=== PATIENT | male | born 1970 | race Caucasian/White ===

== ENCOUNTER 2017-09-29 23:45 | Emergency (ER) | payer SELFPAY ==
[~2017-09-29] VITALS: Ht 182.9 cm; Wt 93.0 kg
[~2017-09-29 23:45] MED LIST: SULF1TAB12 PO; SYN.05 PO
[2017-09-30 00:04] VITALS: BP 125/79
--- NOTE | 2017-09-30 00:31 | NUR ---
PT C/O PAIN THAT STARTS IN HIPS AND RADIATES DOWN LEGS TO KNEES. PT STATES LAST WEEK THAT PAIN WAS RADIATING DOWN RT LEG TO KNEE BUT STATES THAT STARTING "ABOUT" YESTERDAY PAIN IS RADIATING DOWN LEFT LEG. PT STATES HE HAS NO PAIN WHEN LAYING DOWN BUT 8/10 PAIN WHEN WALKING OR GETTING UP. PT DENIES TRAUMA TO AREA, SKIN IS INTACT, +CMS. PT IS LAYING BED AT THIS TIME, AA&0X4. PMH HYPOTHRYROID (PT STATES HE RAN OUT OF RX 2 WEEKS AGO), ASTHMA NKA PT DENIES TAKING MEDS OTHER THAN IBUPROFEN LAST WEEK.
[2017-09-30] MEDS ORDERED: METHOCARBAMOL 500 MG TAB PO ONE (01:20)
[2017-09-30] MEDS ORDERED: KETOROLAC 60 MG/2 ML VIAL IM ONE (01:20)
[2017-09-30 03:01] VITALS: BP 122/76
--- NOTE | 2017-09-30 03:01 | NUR ---
Patient discharged with v/s stable. Written and verbal after care instructions given and explained. Patient alert, oriented and verbalized understanding of instructions. Ambulatory with to car. All questions addressed prior to discharge. ID band removed. Patient advised to follow up with PMD. Rx of LEVOTHROID 112MCG, LIDODERMAL PATCH, MOTRIN 600MG, given. Patient educated on indication of medication including possible reaction and side effects. Opportunity to ask questions provided and answered.
== END 2017-09-30 03:01 | disposition home or self-care (01) ==
LOC: MED 23:45
DX: M54.5 Low back pain (principal); E03.9 Hypothyroidism, unspecified; J45.909 Unspecified asthma, uncomplicated; Z79.899 Other long term (current) drug therapy
CPT/HCPCS: 81002; 96372; 99283; J1885

== ENCOUNTER 2018-07-07 00:53 | Emergency (ER) | payer MEDICAID ==
[~2018-07-07] VITALS: Ht 182.9 cm; Wt 99.8 kg
[2018-07-07 00:59] VITALS: BP 125/90
== END 2018-07-07 03:40 | disposition left against medical advice (07) ==
LOC: MED 00:53
DX: Z76.0 Encounter for issue of repeat prescription (principal); Z53.21 Procedure and treatment not carried out due to patient leaving prior to being seen by health care provider

== ENCOUNTER 2018-07-29 22:42 | Emergency (ER) | payer MEDICAID ==
[~2018-07-29] VITALS: Ht 182.9 cm; Wt 95.3 kg
[2018-07-29 22:46] VITALS: BP 135/94
--- NOTE | 2018-07-29 22:49 | NUR ---
PT AMBULATED TO BED 10 WITH VSS.
--- NOTE | 2018-07-29 23:05 | NUR ---
47/M FOR MED REFILL FOR LEVOTHYROXINE. PT STATES HE HAS BEEN OUT FOR 4 MONTHS. PT REPORTS CONSTANT FATIGUE. VSS, AOX4, GCS 15. PT PLACED ON BEDSIDE MONITOR. PMH: ASTHMA, HYPOTHYROIDISM
[2018-07-29 23:40] LABS: BASOPHILS # (AUTO) 0.1 K/uL (0.00-0.22); BASOPHILS % (AUTO) 1.1 % (0.0-2.0); EOSINOPHILS # (AUTO) 0.2 K/uL (0-0.4); HEMATOCRIT 45.5 % (36-52); LYMPHOCYTES # (AUTO) 2.3 K/uL (2.0-11.5); LYMPHOCYTES % (AUTO) 28.1 % (20.5-51.1); MEAN CORPUSCULAR HEMOGLOBIN 31 pg (27-31); MEAN CORPUSCULAR HGB CONC 33 g/dL (33-37); MEAN CORPUSCULAR VOLUME 93.2 fL (80-94); MONOCYTES # (AUTO) 0.4 K/uL (0.8-1.0); MONOCYTES % (AUTO) 5.5 % (1.7-9.3); NEUTROPHILS # (AUTO) 5.1 K/uL (1.8-7.7); NEUTROPHILS % (AUTO) 63.3 % (42.2-75.2); PLATELET COUNT (AUTO) 250 K/uL (140-450); RED BLOOD CELL COUNT(AUTO) 4.88 MIL/uL (4.20-6.10); RED CELL DISTRIBUTION WIDTH 15.7 % (11.6-13.7)
[2018-07-29 23:52] LABS: ANION GAP 10.9 (8-16); CREATININE 1.5 mg/dL (0.7-1.3); POTASSIUM 3.9 mmol/L (3.5-5.1)
[2018-07-30 00:10] LABS: ALBUMIN 4.3 g/dL (3.4-5.0); FREE T4 (FREE THYROXINE) 0.31 ng/dL (0.76-1.46); THYROID STIMULATING HORMONE 127.16 uIU/mL (0.34-3.74); TOTAL BILIRUBIN 0.4 mg/dL (0.0-1.0)
[2018-07-30] MEDS ORDERED: NACL 0.9% 1,000 ML IV ONE (00:20)
[2018-07-30 00:38] LABS: APPEARANCE,URINE CLEAR (CLEAR); BILIRUBIN,URINE NEGATIVE (NEGATIVE); BLOOD, URINE NEGATIVE (NEGATIVE); COLOR,URINE YELLOW (YELLOW); LEUKOCYTE ESTERASE ,URINE NEGATIVE (NEGATIVE); NITRITE, URINE NEGATIVE (NEGATIVE); UGLUCOSE NEGATIVE (NEGATIVE)
[2018-07-30 00:45] LABS: BARBITURATE, URINE NEG. ng/ml (NEG <=200); BENZODIAZEPINE, URINE NEG. ng/mL (NEG <=200); CANNABINOID, URINE NEG. ng/mL (NEG <=50); COCAINE, URINE NEG. ng/mL (NEG <=300); OPIATE, URINE NEG. ng/mL (NEG <=2000); PHENCYCLIDINE SCREEN,URINE NEG. ng/mL (NEG <=25)
[2018-07-30 00:50] LABS: RBC,URINE NONE SEEN /HPF (0-5); WBC,URINE 0-5 (RARE) /HPF (0-5)
[2018-07-30 00:51] LABS: CALCIUM OXALATE CRYSTALS,UR 0-10 /HPF (None Seen)
--- NOTE | 2018-07-30 01:07 | NUR ---
Patient discharged with v/s stable. Written and verbal after care instructions given and explained. Patient alert, oriented and verbalized understanding of instructions. Ambulatory with steady gait. All questions addressed prior to discharge. ID band removed. Patient advised to follow up with PMD. Rx of LEVOTHYROXINE given. Patient educated on indication of medication including possible reaction and side effects. Opportunity to ask questions provided and answered. IV removed, catheter intact and site benign. Applied folded 4x4 gauze and tape to stop bleeding.
[2018-07-30 01:10] VITALS: BP 134/73
[2018-07-30] MEDS ORDERED: LEVOTHYROXINE 0.112 MG TAB PO SCH (06:30)
== END 2018-07-30 01:07 | disposition home or self-care (01) ==
LOC: MED 22:42
DX: E03.9 Hypothyroidism, unspecified (principal); N17.9 Acute kidney failure, unspecified; R03.0 Elevated blood-pressure reading, without diagnosis of hypertension; M79.604 Pain in right leg; M79.605 Pain in left leg; J45.909 Unspecified asthma, uncomplicated; F17.200 Nicotine dependence, unspecified, uncomplicated; Z79.899 Other long term (current) drug therapy
CPT/HCPCS: 36415; 80053; 80305; 81001; 81002; 84439; 84443; 85025; 99283

== ENCOUNTER 2018-08-06 23:02 | Emergency (ER) | payer MEDICAID ==
[~2018-08-06] VITALS: Ht 182.9 cm; Wt 90.7 kg
[2018-08-06 23:13] VITALS: BP 148/104
--- NOTE | 2018-08-06 23:13 | NUR ---
Came in per self. Very non-specific complaints. Skin w/d. Color slightly ashen. Resp even and unlabored. Denies SOB and CP, but states, "I feel like if I move the wrong way, it will hurt." Notified Dr Souza who saw pt immediately.
--- NOTE | 2018-08-06 23:18 | NUR ---
EKG PERFORMED AT BEDSIDE. PT COVERED IN GOWN DURING PROCEDURE
--- NOTE | 2018-08-06 23:20 | NUR ---
PATIENT PRESENTS TO ED WITH NON-SPECIFIC COMPLAINTS. PT STATES FEELING TINGLING IN L ARM AND FEELING "WRONG SINCE YESTERDAY". CAP REFIL IS DELAYED. DENIES N/V/D; SKIN IS DRY/ASHY; AAOX4 WITH EVEN AND STEADY GAIT; LUNGS CLEAR BL; HR EVEN AND REGULAR; PT DENIES ANY FEVER, SOB, OR COUGH AT THIS TIME; PATIENT STATES PAIN OF 0/10 AT THIS TIME; VSS; PATIENT POSITIONED FOR COMFORT; HOB ELEVATED; BEDRAILS UP X2; BED DOWN. ER MD MADE AWARE OF PT STATUS.
--- NOTE | 2018-08-06 23:25 | NUR ---
X-Ray at bedside.
[2018-08-06 23:59] LABS: BASOPHILS # (AUTO) 0.1 K/uL (0.00-0.22); BASOPHILS % (AUTO) 1.4 % (0.0-2.0); EOSINOPHILS # (AUTO) 0.2 K/uL (0-0.4); EOSINOPHILS % (AUTO) 2.3 % (0.0-4.0); HEMATOCRIT 40.3 % (36-52); HEMOGLOBIN 13.7 g/dL (12.0-18.0); LYMPHOCYTES # (AUTO) 1.8 K/uL (2.0-11.5); LYMPHOCYTES % (AUTO) 22.1 % (20.5-51.1); MEAN CORPUSCULAR HEMOGLOBIN 32 pg (27-31); MEAN CORPUSCULAR HGB CONC 34 g/dL (33-37); MEAN CORPUSCULAR VOLUME 92.8 fL (80-94); MONOCYTES # (AUTO) 0.5 K/uL (0.8-1.0); MONOCYTES % (AUTO) 6.7 % (1.7-9.3); NEUTROPHILS # (AUTO) 5.5 K/uL (1.8-7.7); NEUTROPHILS % (AUTO) 67.5 % (42.2-75.2); PLATELET COUNT (AUTO) 243 K/uL (140-450); RED BLOOD CELL COUNT(AUTO) 4.34 MIL/uL (4.20-6.10); RED CELL DISTRIBUTION WIDTH 15.3 % (11.6-13.7); WHITE BLOOD COUNT (AUTO) 8.1 K/uL (4.8-10.8)
[2018-08-07 00:07] LABS: CARBON DIOXIDE 28.6 mmol/L (21-32); CHLORIDE 99 mmol/L (98-107); CREATININE 1.4 mg/dL (0.7-1.3); GFR ARICAN-AMERICAN 69 mL/min (>90); GLUCOSE 101 mg/dL (74-106); POTASSIUM 3.6 mmol/L (3.5-5.1); SODIUM SERUM 140 mmol/L (136-145); UREA NITROGEN, BLOOD 19 mg/dL (7-18)
[2018-08-07 00:21] LABS: ALBUMIN 4.3 g/dL (3.4-5.0); ASPARTATE AMINOTRANSFERASE 55 U/L (15-37); FREE T4 (FREE THYROXINE) 0.57 ng/dL (0.76-1.46); THYROID STIMULATING HORMONE 88.01 uIU/mL (0.34-3.74); TOTAL BILIRUBIN 0.5 mg/dL (0.0-1.0)
[2018-08-07 00:49] VITALS: BP 140/100
== END 2018-08-07 00:49 | disposition home or self-care (01) ==
LOC: MED 23:02
DX: R07.89 Other chest pain (principal); J45.909 Unspecified asthma, uncomplicated; E03.9 Hypothyroidism, unspecified; F17.200 Nicotine dependence, unspecified, uncomplicated; Z79.2 Long term (current) use of antibiotics; Z79.899 Other long term (current) drug therapy
CPT/HCPCS: 36415; 71045; 80053; 84439; 84443; 85025; 93005; 99284; G0482; Q0092

== ENCOUNTER 2021-07-16 23:10 | Emergency (ER) | payer MEDICAID, OTHER ==
[~2021-07-16] VITALS: Ht 182.9 cm; Wt 99.8 kg
[~2021-07-16 23:10] MED LIST changes: +SULF-954 PO; -SULF1TAB12 PO
[2021-07-16 23:27] VITALS: BP 148/80
[2021-07-17] MEDS ORDERED: LEVO0.1211 PO (00:15)
--- NOTE | 2021-07-17 00:22 | NUR ---
SEEN BY ER MD. NO NURSING INTERVENTIONS REQUIREDPatient discharged with v/s stable. Written and verbal after care instructions given and explained. Patient alert, oriented and verbalized understanding of instructions. Ambulatory with steady gait. All questions addressed prior to discharge. ID band removed. Patient advised to follow up with PMD. Rx of thyroid given. Patient educated on indication of medication including possible reaction and side effects. Opportunity to ask questions provided and answered.
== END 2021-07-17 00:22 | disposition home or self-care (01) ==
LOC: MED 23:10
DX: E03.9 Hypothyroidism, unspecified (principal); Z76.0 Encounter for issue of repeat prescription; J45.909 Unspecified asthma, uncomplicated; F17.210 Nicotine dependence, cigarettes, uncomplicated; Z71.6 Tobacco abuse counseling; Z79.899 Other long term (current) drug therapy
CPT/HCPCS: 99281

== ENCOUNTER 2022-03-02 06:07 | Emergency (ER) | payer OTHER ==
[~2022-03-02] VITALS: Ht 182.9 cm; Wt 104.3 kg
[~2022-03-02 06:07] MED LIST changes: +LEVO0.1211 PO
[2022-03-02 06:15] VITALS: BP 128/99
--- NOTE | 2022-03-02 06:39 | NUR ---
51 Y/O M BIB SELF FOR RT SHOULDER PAIN X 3 HOURS. PAIN IS NEW. PAIN STARTED ON RIGHT LEG AND THEN STOPPED. PT STATES THE LEG PAIN WAS SO SEVERE HE COULD HARDLY WALK. PT TOOK ASPIRIN FOR PAIN . PT STATES PAIN 10/. PT IS A&OX4 AMBULATORU WITH EVEN AND STEADY GAIT. VSS PMH: HYPOTHYROID RX:LEVOTHYROXINE
--- NOTE | 2022-03-02 07:09 | NUR ---
PATIENT ELOPED FROM FACILITY. DISCHARGE INSTRUCTIONS NOT GIVEN TO PATIENT. DR. BYRNE NOTIFIED.
== END 2022-03-02 07:09 | disposition left against medical advice (07) ==
LOC: MED 06:07
DX: M25.511 Pain in right shoulder (principal); M16.11 Unilateral primary osteoarthritis, right hip; E03.9 Hypothyroidism, unspecified; F17.200 Nicotine dependence, unspecified, uncomplicated; F15.90 Other stimulant use, unspecified, uncomplicated; J45.909 Unspecified asthma, uncomplicated; Z72.89 Other problems related to lifestyle
CPT/HCPCS: 73030; 73502; 99284; Q0092

== ENCOUNTER 2022-04-03 04:26 | Emergency (ER) | payer OTHER ==
[~2022-04-03] VITALS: Ht 182.9 cm; Wt 105.2 kg
[2022-04-03 04:30] VITALS: BP 136/91
--- NOTE | 2022-04-03 04:39 | NUR ---
Dr. Tucker examining patient
--- NOTE | 2022-04-03 05:06 | NUR ---
Patient returned back from radiology dept via wheel chair.
[2022-04-03] MEDS ORDERED: NAPR-54 PO (05:19)
[2022-04-03] MEDS ORDERED: LEVO0.1211 PO ×2 (05:23→05:24)
[2022-04-03 05:25] VITALS: BP 136/91
--- NOTE | 2022-04-03 05:25 | NUR ---
Patient discharged with v/s stable. Written and verbal after care instructions given and explained by Dr. Tucker. Patient alert, oriented and verbalized understanding of instructions. Ambulatory with steady gait. All questions addressed prior to discharge. ID band removed. Patient advised to follow up with PMD. Rx of Naproxen given. Patient educated on indication of medication including possible reaction and side effects. Opportunity to ask questions provided and answered.
== END 2022-04-03 05:25 | disposition home or self-care (01) ==
LOC: MED 04:26
DX: S63.91XA Sprain of unspecified part of right wrist and hand, initial encounter (principal); E03.9 Hypothyroidism, unspecified; J45.909 Unspecified asthma, uncomplicated; X58.XXXA Exposure to other specified factors, initial encounter; Y93.89 Activity, other specified; Y92.89 Other specified places as the place of occurrence of the external cause; Y99.8 Other external cause status
CPT/HCPCS: 73060; 99283

== ENCOUNTER 2022-06-28 02:35 | Emergency (ER) | payer MEDICAID, OTHER ==
[~2022-06-28] VITALS: Ht 182.9 cm; Wt 101.6 kg
[~2022-06-28 02:35] MED LIST changes: +NAPR-54 PO
[2022-06-28 02:43] VITALS: BP 141/93
--- NOTE | 2022-06-28 02:44 | NUR ---
PT TO BED 12
--- NOTE | 2022-06-28 02:54 | NUR ---
51/M BIB SELF C/C 03/14 RIGHT HIP PAIN X1YEAR. PER PATIENT PAIN EXACERBATES WHEN WALKING. DENIES TAKING PAIN MEDS. DENIES PMHX, RX NKA
[2022-06-28] MEDS ORDERED: KETOROLAC 30 MG/ML VIAL IM ONE (03:15)
[2022-06-28] MEDS ORDERED: ACETAMINOPHEN EXTRA STRENGTH 500 MG TAB PO ONE (03:15)
--- NOTE | 2022-06-28 03:19 | NUR ---
RADIOLOGY AT BEDSIDE
[2022-06-28] MEDS ORDERED: NAPR-54 PO (04:00)
[2022-06-28] MEDS ORDERED: ACET-10509 PO (04:00)
[2022-06-28 04:04] VITALS: BP 145/89
--- NOTE | 2022-06-28 04:04 | NUR ---
Patient discharged with v/s stable. Written and verbal after care instructions given and explained. Patient alert, oriented and verbalized understanding of instructions. Ambulatory with steady gait. All questions addressed prior to discharge. ID band removed. Patient advised to follow up with PMD. Rx of ACETAMINOPHEN AND NAPROXEN given. Patient educated on indication of medication including possible reaction and side effects. Opportunity to ask questions provided and answered.
== END 2022-06-28 04:04 | disposition home or self-care (01) ==
LOC: MED 02:35
DX: M16.11 Unilateral primary osteoarthritis, right hip (principal); J45.909 Unspecified asthma, uncomplicated; E03.9 Hypothyroidism, unspecified; Z79.899 Other long term (current) drug therapy
CPT/HCPCS: 73502; 96372; 99283; J1885; Q0092

== ENCOUNTER 2022-07-06 06:47 | Emergency (ER) | payer MEDICAID ==
[~2022-07-06] VITALS: Ht 182.9 cm; Wt 101.8 kg
[~2022-07-06 06:47] MED LIST changes: +ACET-10509 PO
[2022-07-06 06:55] VITALS: BP 131/97
--- NOTE | 2022-07-06 07:05 | NUR ---
PATIENT AMBULATED TO BED 7
--- NOTE | 2022-07-06 07:08 | NUR ---
IZABELLA BOYD ASSESSING PATIENT
--- NOTE | 2022-07-06 07:14 | NUR ---
51YR OLD MALE BIB SELF C/O POSS BUG BITE. LOWER LIP SWOLLEN THROBBING 8/10 PAIN LEVEL . NO THROAT OR TONGUE SWELLING. DENIES SOB OR CP. PT STATES WAKING UP WITH SWELLING YESTERDAY MORING. ER MD AT BEDSIDE. NKDA HYPOTHYROID
[2022-07-06] MEDS ORDERED: DEXAMETHASONE 4 MG TAB PO ONE (07:15)
[2022-07-06] MEDS ORDERED: EPINEPHrine 1 MG/ML AMP IM ONE (07:15)
--- NOTE | 2022-07-06 07:27 | NUR ---
LAB AT BEDSIDE
[2022-07-06 07:56] LABS: BASOPHILS # (AUTO) 0.1 K/uL (0.00-0.22); BASOPHILS % (AUTO) 0.8 % (0.0-2.0); EOSINOPHILS # (AUTO) 0.2 K/uL (0-0.4); HEMATOCRIT 42.4 % (36-52); HEMOGLOBIN 14.4 g/dL (12.0-18.0); LYMPHOCYTES # (AUTO) 1.9 K/uL (2.0-11.5); LYMPHOCYTES % (AUTO) 17.9 % (20.5-51.1); MEAN CORPUSCULAR HEMOGLOBIN 31 pg (27-31); MEAN CORPUSCULAR HGB CONC 34 g/dL (33-37); MEAN CORPUSCULAR VOLUME 91.5 fL (80-94); MONOCYTES # (AUTO) 0.9 K/uL (0.8-1.0); MONOCYTES % (AUTO) 8.5 % (1.7-9.3); NEUTROPHILS # (AUTO) 7.5 K/uL (1.8-7.7); NEUTROPHILS % (AUTO) 70.8 % (42.2-75.2); PLATELET COUNT (AUTO) 259 K/uL (140-450); RED BLOOD CELL COUNT(AUTO) 4.63 MIL/uL (4.20-6.10); RED CELL DISTRIBUTION WIDTH 14.9 % (11.6-13.7); WHITE BLOOD COUNT (AUTO) 10.5 K/uL (4.8-10.8)
--- NOTE | 2022-07-06 08:16 | NUR ---
51/M PRESENTS TO ED WITH C/O POSSIBLE BUG BITE TO LOWER LIP. PATIENT STATES WAKING UP WITH SWELLING TO LIP YESTERDAY, DENIES SOB OR CP. PATIENT C/O INTERMITTENT HEADACHE AND NAUSEA, DENIES TAKING MEDS FOR SYMPTOMS, PATIENT SPEAKING IN FULL CLEAR SENTENCES.
[2022-07-06 08:26] LABS: ALBUMIN 3.7 g/dL (3.4-5.0); ANION GAP 12.5 (8-16); CARBON DIOXIDE 27.2 mmol/L (21-32); POTASSIUM 3.7 mmol/L (3.5-5.1); TOTAL BILIRUBIN 0.3 mg/dL (0.0-1.0)
[2022-07-06] MEDS ORDERED: AMOX1TAB8 PO (08:43)
[2022-07-06 08:50] VITALS: BP 123/87
--- NOTE | 2022-07-06 08:50 | NUR ---
Patient discharged with v/s stable. Written and verbal after care instructions FOR SPIDER BITE AND ANGIOEDEMA given and explained. Patient alert, oriented and verbalized understanding of instructions. Ambulatory with steady gait. All questions addressed prior to discharge. ID band removed. Patient advised to follow up with PMD. Rx of AMOXICILLIN given.Opportunity to ask questions provided and answered.
--- NOTE | 2022-07-06 09:01 | NUR ---
The patient's care was reviewed and supervised by Larissa Santana RN.
== END 2022-07-06 08:50 | disposition home or self-care (01) ==
LOC: MED 06:47
DX: K13.0 Diseases of lips (principal); T78.3XXA Angioneurotic edema, initial encounter; E03.9 Hypothyroidism, unspecified; J45.909 Unspecified asthma, uncomplicated
CPT/HCPCS: 36415; 80053; 85025; 96372; 99283; J0171; Q0163

== ENCOUNTER 2022-10-10 04:11 | Emergency (ER) | payer MEDICAID ==
[~2022-10-10] VITALS: Ht 182.9 cm; Wt 95.3 kg
[~2022-10-10 04:11] MED LIST changes: +AMOX1TAB8 PO
[2022-10-10 04:42] VITALS: BP 155/66
--- NOTE | 2022-10-10 04:42 | NUR ---
to bed ambulatory
--- NOTE | 2022-10-10 04:55 | NUR ---
Patient lying in bed, A/Ox4, chest rise and fall symmetrical, no s/s of distress
--- NOTE | 2022-10-10 05:30 | NUR ---
Patient lying in bed, A/Ox4, chest rise and fall symmetrical, no c/o pain or s/s of distress
--- NOTE | 2022-10-10 06:03 | NUR ---
Dr. eLal examining patient.
--- NOTE | 2022-10-10 06:45 | NUR ---
Patient lying in bed, A/Ox4, chest rise and fall symmetrical, no c/o pain or s/s of distress
[2022-10-10] MEDS ORDERED: CEPH-588 PO (07:00)
[2022-10-10] MEDS ORDERED: NAPR-1704 PO (07:00)
[2022-10-10 07:16] VITALS: BP 122/85
== END 2022-10-10 07:16 | disposition home or self-care (01) ==
LOC: MED 04:11
DX: L03.116 Cellulitis of left lower limb (principal); L03.115 Cellulitis of right lower limb; E03.9 Hypothyroidism, unspecified; J45.909 Unspecified asthma, uncomplicated
CPT/HCPCS: 99283

== ENCOUNTER 2022-12-27 16:48 | Emergency (ER) | payer MEDICAID ==
[~2022-12-27] VITALS: Ht 182.9 cm; Wt 99.8 kg
[~2022-12-27 16:48] MED LIST changes: +CEPH-588 PO; +NAPR-1704 PO
[2022-12-27 17:06] VITALS: BP 129/97
--- NOTE | 2022-12-27 17:11 | NUR ---
PATIENT'S BLOOD SUGARS HAVE BEEN ELEVATED SINCE TUESDAY RANGING FROM 600 TO 400. BS IN TRIAGE 405. DENIES SYMPTOMS. PMH: UNDIAGNOSED DM, HYPOTHYROID
[2022-12-27 18:08] LABS: BASOPHILS # (AUTO) 0.1 K/uL (0.00-0.22); BASOPHILS % (AUTO) 1.1 % (0.0-2.0); EOSINOPHILS # (AUTO) 0.2 K/uL (0-0.4); EOSINOPHILS % (AUTO) 1.7 % (0.0-4.0); HEMATOCRIT 43.9 % (36-52); HEMOGLOBIN 14.9 g/dL (12.0-18.0); LYMPHOCYTES % (AUTO) 20.7 % (20.5-51.1); MEAN CORPUSCULAR HEMOGLOBIN 31 pg (27-31); MEAN CORPUSCULAR HGB CONC 34 g/dL (33-37); MONOCYTES # (AUTO) 0.7 K/uL (0.8-1.0); MONOCYTES % (AUTO) 7.2 % (1.7-9.3); NEUTROPHILS # (AUTO) 6.7 K/uL (1.8-7.7); NEUTROPHILS % (AUTO) 69.3 % (42.2-75.2); PLATELET COUNT (AUTO) 242 K/uL (140-450); RED BLOOD CELL COUNT(AUTO) 4.83 MIL/uL (4.20-6.10); RED CELL DISTRIBUTION WIDTH 14.6 % (11.6-13.7); WHITE BLOOD COUNT (AUTO) 9.7 K/uL (4.8-10.8)
[2022-12-27 18:20] LABS: ANION GAP 15.6 (8-16); CARBON DIOXIDE 23.1 mmol/L (21-32); CREATININE 1.2 mg/dL (0.6-1.3); POTASSIUM 3.7 mmol/L (3.5-5.1)
--- NOTE | 2022-12-27 18:30 | NUR ---
pt amb to bed 4
[2022-12-27] MEDS ORDERED: LEVO0.124 PO (19:37)
[2022-12-27] MEDS ORDERED: METF-1243 PO (19:37)
--- NOTE | 2022-12-27 19:47 | NUR ---
Patient discharged with v/s stable. Written and verbal after care instructions given and explained. Patient alert, oriented and verbalized understanding of instructions. Ambulatory with steady gait. All questions addressed prior to discharge. ID band removed. Patient advised to follow up with PMD. Rx of METFORMIN AND SYNTHORID given. Patient educated on indication of medication including possible reaction and side effects. Opportunity to ask questions provided and answered.
== END 2022-12-27 19:47 | disposition home or self-care (01) ==
LOC: MED 16:48
DX: R73.9 Hyperglycemia, unspecified (principal); J45.909 Unspecified asthma, uncomplicated; E03.9 Hypothyroidism, unspecified; Z79.899 Other long term (current) drug therapy; Z79.2 Long term (current) use of antibiotics; Z79.1 Long term (current) use of non-steroidal anti-inflammatories (NSAID)
CPT/HCPCS: 36415; 80048; 82948; 85025; 99283

== ENCOUNTER 2023-10-20 21:26 | Emergency (ER) | payer MEDICAID, OTHER ==
[~2023-10-20] VITALS: Ht 180.3 cm; Wt 104.3 kg
[~2023-10-20 21:26] MED LIST changes: +LEVO0.124 PO; +METF-1243 PO
[2023-10-20 21:48] VITALS: BP 126/69; PULSE 80; RESP 18; TEMP 97.1; O2SAT 98
[2023-10-21] MEDS ORDERED: PENI500T20 PO (00:13)
[2023-10-21 00:41] VITALS: BP 126/69; PULSE 80; RESP 18; TEMP 97.1; O2SAT 98
== END 2023-10-21 00:41 | disposition home or self-care (01) ==
LOC: MED 21:26
DX: K13.4 Granuloma and granuloma-like lesions of oral mucosa (principal); J45.909 Unspecified asthma, uncomplicated; Z86.39 Personal history of other endocrine, nutritional and metabolic disease; Z79.899 Other long term (current) drug therapy
CPT/HCPCS: 99283